=== PATIENT | female | born 1955 | race Caucasian/White ===

== ENCOUNTER 2019-09-14 12:29 | Emergency (ER) | payer SELFPAY ==
--- NOTE | 2019-09-14 12:42 | PC.NURSE ---
Patient left from registration. Was not seen by this nurse. Was informed by registration that her insurance does not cover the providers here.
== END 2019-09-14 12:46 | disposition left against medical advice (07) ==
LOC: EXPGLEN 12:34
PROVIDERS: Emergency Provider Nurse Practitioner Family; PCP Family Medicine
DX: Z53.21 Procedure and treatment not carried out due to patient leaving prior to being seen by health care provider (principal)
CPT/HCPCS: 99199

== ENCOUNTER 2020-06-11 16:24 | Emergency (ER) | payer BC, SELFPAY ==
[2020-06-11] VITALS (7 sets, daily range): BP systolic 122–150; BP diastolic 72–99; PULSE 77–109; RESP 18–26; TEMP 36.4; O2SAT 96–99
--- NOTE | 2020-06-11 17:10 | ED.GENADULT ---
HPI - General Adult General Chief complaint: Unspecified Stated complaint: high blood pressure Time Seen by Provider: 06/11/20 16:42 Source: patient Mode of arrival: ambulatory Limitations: no limitations History of Present Illness HPI narrative: This is a 65-year-old female that presents to the emergency department for hypertension. Reports she had not taken her blood pressure medications for a couple of days and her blood pressure has been elevated. Reports she has had a mild headache the last couple of days. Reports she thought she should get checked out. Denies fever, vision changes, vomiting, chest pain, shortness of breath, or lower extremity edema. Related Data Home Medications Medication Instructions Recorded Confirmed anastrozole 1 mg tablet 1 mg PO DAILY 04/21/20 dextroamphetamine-amphetamine 10 10 mg PO DAILY 04/21/20 mg tablet estradiol 1 g VAGINAL 2XW 04/21/20 levothyroxine 150 mcg tablet 150 mcg PO DAILY 04/21/20 losartan 100 mg tablet 100 mg PO DAILY 04/21/20 ondansetron HCl 8 mg tablet 8 mg PO Q8H PRN 04/21/20 spironolactone 100 mg tablet 50 mg PO .3-4XWEEK tablet 04/21/20 testosterone 200 mg implant pellet 100 mg SUBCUT ONCE ea 04/21/20 alprazolam 0.25 mg tablet 0.25 mg PO BID PRN tablet 05/25/20 Allergies Allergy/AdvReac Type Severity Reaction Status Date / Time iodine Allergy Unknown Unknown Verified 06/11/20 16:41 sulfur dioxide Allergy Unknown Unknown Verified 06/11/20 16:36 Sulfa (Sulfonamide Allergy Unknown Verified 06/11/20 16:36 Antibiotics) 1 IVP DYE 2 SULFA Allergy Unknown Unknown Uncoded 06/11/20 16:41 Review of Systems Review of Systems: Narrative: CONSTITUTIONAL: Denies fever EYES: Denies visual changes CARDIOVASCULAR: Denies chest pain, or edema. RESPIRATORY: Denies dyspnea. GASTROINTESTINAL: Denies vomiting NEUROLOGIC: Reports headache. Denies numbness, or weakness. All systems reviewed & are unremarkable except as noted in HPI and below PMFSH Past Medical History Medical History (Updated 06/11/20 @ 18:41 by Radha Castano PA-C) History of hypertension Migraines Thyroid disorder Surgical History Surgical History (Updated 04/21/20 @ 09:47 by Faby T. Martinez, [employer]) Delivery by section H/O: hysterectomy Family History Family History (Updated 04/21/20 @ 08:56 by Sylwia Spencer CMA) Father Heart attack Social History Social History (Updated 04/21/20 @ 08:57 by Sylwia Spencer CMA) Smoking status: Former smoker Smoking end date: 07/10/82 Alcohol intake: current Gender identity (if verbalized by the patient): Female Exam Narrative: Exam Narrative: GENERAL: Well-appearing, well-nourished, and in no acute distress. HEAD: Normocephalic, atraumatic. EYES: PERRLA and EOMI. ENT: Nares clear, no rhinorrhea or epistaxis. Mucous membranes moist. Oropharynx without tonsillar hypertrophy exudate or other lesions. Bilateral TMs pearly cruz non-bulging NECK: Supple. No adenopathy or masses. CHEST: Clear to auscultation. No respiratory distress. No wheezes rales or rhonchi HEART: Regular rate and rhythm. No murmur heard. Normal peripheral pulses. EXTREMITIES: Normal range of motion. No edema. SKIN: Warm, dry, no rash. NEURO: No focal deficits. Alert and oriented x3. Cranial nerves II through XII grossly intact PSYCH: Normal mood and affect Course Vital Signs Vital signs: Vital Signs Temperature 97.6 F 06/11/20 16:30 Pulse Rate 98 06/11/20 16:30 Respiratory Rate 20 06/11/20 16:30 Blood Pressure 150/99 H 06/11/20 16:30 Pulse Oximetry 99 06/11/20 16:30 Temperature 97.6 F 06/11/20 16:30 Pulse Rate 84 06/11/20 18:03 Respiratory Rate 24 H 06/11/20 18:03 Blood Pressure 122/72 06/11/20 18:01 Pulse Oximetry 98 06/11/20 18:03 Medical Decision Making MDM Narrative Medical decision making narrative: Patient presents the emergency department for hypertension. Blood pressure elevated 150/99 on arri
--- NOTE | 2020-06-11 17:22 | PC.NURSE ---
patient refusing ct scan stating she doesnt feel it is necessary
[2020-06-11 17:23] LABS: Basophils Absolute Auto 0.1 K/mm3 (0.0-0.1); Basophils Percent Auto 0.5 % (0.2-1.2); Eosinophils Absolute Auto 0.2 K/mm3 (0-0.3); Eosinophils Percent Auto 1.9 % (0-4.4); Hematocrit 43.4 % (37.0-47.0); Hemoglobin 14.5 g/dL (12.0-15.0); Immature Granulocyte Absolute 0.03 K/mm3 (0.00-0.031); Immature Granulocyte Percent A 0.3 % (0-0.5); Lymphocytes Percent Auto 30.6 % (18.3-44.2); Mean Corpuscular HGB Conc 33.4 g/dl (32-36); Mean Corpuscular Hemoglobin 27.9 pg (26-34); Mean Corpuscular Volume 83.5 fl (80-100); Mean Platelet Volume 8.9 fl (7.4-10.4); Monocytes Absolute Auto 0.8 K/mm3 (0.1-0.6); Monocytes Percent Auto 8.3 % (2.6-8.5); Neutrophils Absolute Auto 5.3 K/mm3 (1.3-6.7); Neutrophils Percent Auto 58.4 % (45.5-73.1); Platelet Count Result 350 k/mm3 (150-375); Red Cell Distribution Width 14.5 % (11.5-14.5); White Blood Count 9.1 K/mm3 (4.5-10.0)
[2020-06-11 17:36] LABS: Anion Gap 6 mmol/L (8-16); Blood Urea Nitrogen 13 mg/dL (7-17); Calcium 9.3 mg/dL (8.4-10.2); Carbon Dioxide 30 mmol/L (22-30); Chloride 101 mmol/L (98-107); Estimated CRCL calculation 65 ml/min; Estimated Glomerular Filt Rate > 60; Glucose 100 mg/dL (65-105); Sodium 137 mmol/L (137-145)
== END 2020-06-11 18:52 | disposition home or self-care (01) ==
PROVIDERS: Physician Assistant; Emergency Provider Family Medicine; PCP Internal Medicine
DX: I10 Essential (primary) hypertension (principal); E07.9 Disorder of thyroid, unspecified; Z87.891 Personal history of nicotine dependence
CPT/HCPCS: 36415; 80048; 85025; 96374; 99284; J0131

== ENCOUNTER 2020-09-14 16:41 | Outpatient (CLI) | payer BC, SELFPAY | END 2020-09-14 16:42 | disposition home or self-care (01) | LOC: ANHCOVIDVC 16:41 | PROVIDERS: PCP Internal Medicine | DX: Z23 Encounter for immunization (principal) | CPT/HCPCS: 0001A; 91300 ==

== ENCOUNTER 2020-10-05 16:40 | Outpatient (CLI) | payer BC, SELFPAY | END 2020-10-05 16:41 | disposition home or self-care (01) | LOC: ANHCOVIDVC 16:40 | PROVIDERS: PCP Internal Medicine | DX: Z23 Encounter for immunization (principal) | CPT/HCPCS: 0002A; 91300 ==

== ENCOUNTER → 2023-06-13 12:06 | Outpatient (CLI) | payer MEDICARE, SELFPAY ==
--- NOTE | ~2023-06-13 | XR_ITS ---
Clinical Indication: Chronic bronchitis PA and lateral views of the chest: Comparison: None Findings: The lungs are clear, without evidence of focal consolidation or pleural effusion. Cardiome diastinal silhouette is within normal limits. Bones and soft tissues are unremarkable. Impression: Normal chest. Reviewed, dictated and finalized at location . K SECRETARY Impression: Normal chest.
== END ==
PROVIDERS: PCP Nurse Practitioner Adult Health; Visit Provider Nurse Practitioner Adult Health
DX: J42 Unspecified chronic bronchitis (principal)
CPT/HCPCS: 71046

== ENCOUNTER 2023-10-02 08:12 | Outpatient (CLI) | payer MEDICARE, SELFPAY ==
--- NOTE | ~2023-10-02 | XR_ITS ---
EXAMINATION: XR UGIAC w barium swallow DATE: 10/02/2023 09:09 INDICATION: Chronic cough with drinking. TECHNIQUE: The patient drank thick barium, gas-producing crystals, and thin barium. A total of 1093 f luoroscopic images of the hypopharynx, esophagus, stomach, and proximal small bowel were obtained. Fl uoroscopy exposure time was 2.5 minutes. Total DAP was 12.757 Gycm^2 COMPARISON: None. FINDINGS: The pharynx is symmetric and without evidence of mass lesion or mucosal irregularity. No evident taylor ngeal penetration or aspiration. The esophagus is normal without mass or stricture. Esophageal motili ty is normal. There is no hiatal hernia. There was no gastroesophageal reflux with provocative maneuv ers. The stomach and proximal small bowel are normal. IMPRESSION: 1. Normal esophagram and upper GI study. Given the clinical concern for aspiration and if clinically indicated, could consider further evaluation with modified barium swallow study performed in conjunct ion with the department of speech pathology for more detailed assessment of swallowing function. Reviewed, dictated and finalized at location A. IMPRESSION: 1. Normal esophagram and upper GI study. Given the clinical concern for aspirat ion and if clinically indicated, could consider further evaluation with modifie d barium swallow study performed in conjunction with the department of speech p athology for more detailed assessment of swallowing function.
== END 2023-10-02 08:13 | disposition home or self-care (01) ==
PROVIDERS: PCP Nurse Practitioner Adult Health; Visit Provider Nurse Practitioner Family
DX: K21.9 Gastro-esophageal reflux disease without esophagitis (principal); R05.3 Chronic cough; R13.10 Dysphagia, unspecified
CPT/HCPCS: 74246

== ENCOUNTER 2023-11-10 08:13 | Outpatient (CLI) | payer MEDICARE, SELFPAY ==
--- NOTE | ~2023-11-10 | XR_ITS ---
Lumbosacral Spine: AP and lateral views Clinical History: Pain Findings: The normal lordotic curve is maintained. No fracture evident. 3 mm anterolisthesis of L4 ov er L5 noted. Vertebral disc spaces are well preserved. There is severe facet arthropathy from L3 thro ugh S1. The sacroiliac joints are normally outlined. Vascular stents are noted in the iliac vessel re gions. Impression: 3 mm anterolisthesis of L4 over L5. Extensive facet arthropathy, as above. Iliac vessels stents. Reviewed, dictated and finalized at location M. Impression: 3 mm anterolisthesis of L4 over L5. Extensive facet arthropathy, as above. Iliac vessels stents.
--- NOTE | ~2023-11-10 | XR_ITS ---
XR hip RT min 2V 11/10/2023 08:57 Indication: Right hip pain Procedure: 2 views each hip Comparison: No prior studies for comparison. Findings: Mild osteoarthritis of the hips which is symmetric. There are endovascular stents in the il iac arteries. Pelvic rings are intact. Sacral foramen are symmetric. Impression: 1: Mild osteoarthritis of the hips. Reviewed, dictated and finalized at location B. Impression: 1: Mild osteoarthritis of the hips.
== END 2023-11-10 08:14 ==
PROVIDERS: PCP Nurse Practitioner Adult Health; Visit Provider Registered Nurse
DX: M54.50 Low back pain, unspecified (principal); M16.11 Unilateral primary osteoarthritis, right hip
CPT/HCPCS: 72100; 73502

== ENCOUNTER 2023-12-20 08:33 | Outpatient (CLI) | payer MEDICARE, SELFPAY ==
--- NOTE | 2023-12-20 11:30 | NEURO_ITS ---
Impression: # Non-diabetic complains of numbness of lower extremities. # Normal Nerve Conduction Study. # Needle/EMG exam not requested. # Clinical correlation recommended. Nerve Conduction Studies Anti Sensory Summary Table Stim Site NR Peak (ms) P-T Amp (?V) Site1 Site2 Delta-P (ms) Dist (cm) Demetrius (m/s) Left Sup Fibular Anti Sensory (Ant Lat Mall) 14 cm 3.0 15.0 14 cm Ant Lat Mall 3.0 16.0 53 Right Sup Fibular Anti Sensory (Ant Lat Mall) 14 cm 3.1 10.8 14 cm Ant Lat Mall 3.1 16.0 52 Left Sural Anti Sensory (Lat Mall) Calf 3.2 5.5 Calf Lat Mall 3.2 16.0 50 Right Sural Anti Sensory (Lat Mall) Calf 3.6 4.5 Calf Lat Mall 3.6 16.0 44 Motor Summary Table Stim Site NR Onset (ms) O-P Amp (mV) Site1 Site2 Delta-0 (ms) Dist (cm) Demetrius (m/s) Left Peroneal Motor (Vastus Med) Ankle 3.4 1.7 Popit Ankle 8.1 39.0 48 Popit 11.5 1.0 Right Peroneal Motor (Vastus Med) Ankle 3.2 1.0 Popit Ankle 7.9 38.0 48 Popit 11.1 0.7 Left Tibial Motor (Abd Ramirez Brev) Ankle 3.9 1.5 Knee Ankle 7.5 39.0 52 Knee 11.4 2.3 Right Tibial Motor (Abd Ramirez Brev) Ankle 3.9 3.5 Knee Ankle 8.5 40.0 47 Knee 12.4 2.8 F Wave Studies NR F-Lat (ms) L-R F-Lat (ms) Left Peroneal (Mrkrs) (EDB) 47.39 1.26 Right Peroneal (Mrkrs) (EDB) 48.65 1.26 Left Tibial (Mrkrs) (Abd Hallucis) 48.41 0.50 Right Tibial (Mrkrs) (Abd Hallucis) 48.91 0.50 MTDD
== END 2023-12-20 08:34 | disposition home or self-care (01) ==
LOC: ANHNEURO 08:34
PROVIDERS: PCP Nurse Practitioner Adult Health; Visit Provider Family Medicine
DX: M54.31 Sciatica, right side (principal)
CPT/HCPCS: 95910

== ENCOUNTER 2024-12-12 08:32 | Outpatient (CLI) | payer MEDICARE, SELFPAY ==
--- OUTSIDE RECORDS SUMMARY | 2024-12-12 08:39 | XMS_ITS | CONTINUITY OF CARE DOCUMENT ---
Author Name phan, phan Address Unknown Organization [facility] Address [address] [address] [place] [address] Phone [phone] Care Team Providers Care Toolroom Helper Name Role Phone Stefan SUN, Alex Yu Unavailable [phone] BEN SUN, EVENS Garrison Unavailable DEBBY MOSELEY MD Unavailable PROBLEMS Condition Status Date Provider Notes Diabetes mellitus, oral medication active Vaughn Monroy RN Aortic atherosclerosis active Kamar Hawk MD Venous insufficiency active Kamar Ordaz HYPOTHYROIDISM active Kamar Hawk MD Screening active Kamar Hawk MD zero sco re HTN ESSENTIAL active Kamar Hawk MD Overweight active Kamar Hawk MD ANXIETY DISORDER MILD active Kamar Hawk MD SNORING completed - Kamar Hawk MD Chest pain, atypical completed - Kamar Hawk MD Tobacco use, quit active Kamar Hawk MD t oo remote to screen Abnormal electrocardiogram completed 03/31 - Kamar Hawk MD FAMILY HISTORY OF HEART DISEASE active Kamar Hawk MD dad Rosacea active Kamar Hawk MD Leg pain, bilateral active Hiral Renee eyer ENCOUNTERS Date Type Provider Location Encounter Diag nosis 6 - 7 In-person encounter Office Visit Alex Aviles MD [facility] Office 4 - 8 In-person encounter Office Visit Alex Aviles MD [facility] Office 7 - 6 In-person encounter Office Visit Alex Aviles MD [facility] Leg pain, bilateral 7 - 7 In-person encounter Office Visit Kamar Hawk MD [facility] ScreeningChest pain, atypicalTobacco use, quitAbnormal electrocardiogramFAMILY HISTORY OF HEART DISEASERosacea 2 - 2 In-person encounter Office Visit Kamar Hawk MD [facility] ScreeningOverweightSNORINGTobacco use, quitFAMILY HISTORY OF HEART DISEASE 6 - 6 In-person encounter Office Visit Kamar Hawk MD [facility] HYPOTHYROIDISMScreeningHTN ESSENTIALOverweightANXIETY DISORDER MILD VITAL SIGNS Date Observation Value Provider Body Mass Index (Ratio) 29.78 kg/m2 Ulises Arellano blood pressure, cuff size regular Damon mi Oswald blood pressure, diastolic 89 mm[Hg] [facility], systolic 133 mm[Hg] [facility] oxygen saturation, oximetry 98 % Nga Oswald respiratory rate E&M 14 /min Nga Oswald pulse rate 94 /min Nga Oswald weight E&M 179 [lb_av] Nga Oswald height E&M 65 [in_i] Nga Oswald Body Mass Index (Ratio) 29.38 kg/m2 Prudencio Gonzales blood pressure, cuff size regular Sh tishamassiel Zabrina blood pressure, diastolic 100 mm[Hg] Sh shyann Gerber blood pressure, systolic 148 mm[Hg] She wing Gerber oxygen saturation, oximetry 94 % Domi Gerber weight E&M 176.6 [lb_av] Domi Gerber respiratory rate E&M 84 /min Domi Gerber pulse rate 94 /min Domi Gerber height E&M 65 [in_i] Domi Gerber Body Mass Index (Ratio) 29.95 kg/m2 Keysha courtney Miko blood pressure, diastolic 74 mm[Hg] Sa ra Luevano blood pressure, systolic 138 mm[Hg] Reynaldo a Luevano blood pressure, cuff size regular Sa ra Luevano oxygen saturation, oximetry 97 % Lucinda Luevano pulse rate 97 /min Lucinda Luevano weight E&M 180 [lb_av] Lucinda Luevano height E&M 65 [in_i] Lucinda Luevano Body Mass Index (Ratio) 29.62 kg/m2 Tammie Hawk MD blood pressure, diastolic 83 mm[Hg] Micheline nkLogbradford blood pressure, systolic 132 mm[Hg] Estefany Siuogbradford blood pressure, diastolic 83 mm[Hg] Rh onremigio Angel blood pressure, systolic 132 mm[Hg] Rho ndleatha Angel oxygen saturation, oximetry 98 % Ting Angel pulse rate 75 /min Ting Angel blood pressure, cuff size regular Rh wil Angel blood pressure, resting Yes Yolanda Frazier respiratory rate E&M 16 /min Ting Angel weight E&M 178 [lb_av] Ting Angel height E&M 65 [in_i] Ting Angel blood pressure, diastolic 84 mm[Hg] Samuel Montero blood pressure, systolic 118 mm[Hg] Reyes Montero pulse rate 99 /min Tootie Montero oxygen saturation, oximetry 98 % [facility] respiratory rate E&M 15 /min [facility] Body Mass Index (Ratio) 28.62 kg/m2 Nehemias Montero weight E&M 172 [lb_av] [facility] height E&M 65 [in_i] Tootie Montero blood pressure, diastolic 81 mm[Hg] Yolanda Cooper MA blood pressure, systolic 123 mm[Hg] Marina Cooper MA pulse rate 77 /min Ivanna Cooper MA oxygen saturation, oximetry 97 % Ivanna Cooper MA respiratory rate E&M 18 /min Ivanna Cooper MA weight E&M 204 [lb_av] Ivanna Cooper MA ALLERGIES Allergy Name Onset Date Reaction Criticality Status IVP DYE flushing and milds sob Low Criticali ty active QSYMIA High Criticality active LISINOPRIL Edwin induced cough High Criticality a ctive RESULTS Date Observation Value Provider Reference Range Interpretation Location hemoglobin A1C, blood, as % of total hemoglobin 5.4 % OF TOTAL HGB [facility] <5.7 Normal C-reactive protein, by highly sensitive test 1.0 mg/L [facility] Normal basophils as percent of blood leukocytes 0.5 % [facility] Normal eosinophils as percent of blood leukocytes 2.3 % [facility] Normal monocyte count, blood 8.3 % [facility] Normal lymphocyte count, blood 29.5 % [facility] Normal neutrophils as percent of blood leukocytes 59.4 % [facility] Normal basophils, absolute, manual 34 cells/mcL [facility] 0-200 Normal eosinophils, absolute, manual 154 cells/mcL [facility] 15-500 Normal monocytes, absolute, manual 556 cells/mcL [facility] 200-950 Normal lymphocytes, absolute 1977 CELLS/UL [facility] 850-3900 Normal Absolute Neutrophil count 3980 cells/mcL [facility] 7700-8923 Normal mean platelet volume 9.5 fL [facility] 7.5-12.5 Normal platelet count 264 THOUSAND/UL [facility] 140-400 Normal red blood cell distribution width 12.7 % [facility] 11.0-15.0 Normal mean corpuscular hemoglobin concentration, RBC 33.1 G/DL [facility] 32.0-36.0 Normal mean corpuscular hemoglobin, RBC 29.9 pg [facility] 27.0-33.0 Normal mean corpuscular volume, RBC 90.2 fL [facility] 80.0-100.0 Normal hematocrit, blood 46.8 % [facility] 35.0-45.0 High hemoglobin electrophoresis, blood 15.5 [facility] 11.7-15.5 Normal erythrocyte (RBC) count 5.19 MILLION/UL [facility] 3.80-5.10 High leukocyte (white blood cells) count, blood 6.7 THOUSAND/UL [facility] 3.8-10.8 Normal calcium, serum 9.3 mg/dL [facility] 8.6-10.4 Normal carbon dioxide, venous blood 28 mmol/L [facility] 20-32 Normal chloride, serum 103 mmol/L [facility] 98-110 Normal potassium, serum 4.5 mmol/L [facility] 3.5-5.3 Normal sodium, serum 138 mmol/L [facility] 135-146 Normal urea nitrogen/creatini ne ratio, serum SEE NOTE: (calc) [facility] 6-22 creatinine, serum 0.75 mg/dL [facility] 0.50-1.05 Normal urea nitrogen, blood 13 mg/dL [facility] 7-25 Normal blood glucose, random 93 mg/dL [facility] 65-99 Normal NT-pro BNP 44 [facility] <125 Normal microalbumin/crea tinine ratio, urine 3 MG/G CREAT [facility] <30 Normal microalbumin/tota l urine volume 6 mg/L [facility] Units converted. See lab report for original value. Normal creatinine, random, urine 186 mg/dL [facility] 20-275 Normal cholesterol, non-HDL, total 83 MG/DL (CALC) [facility] <130 Normal cholesterol/HDL ratio, serum, percent 3.2 (calc) [facility] <5.0 Normal LDL cholesterol, serum 64 MG/DL (CALC) [facility] Normal triglyceride, serum, fasting 107 mg/dL [facility] <150 Normal HDL cholesterol, serum 37 mg/dL [facility] > OR = 50 Low cholesterol, serum 120 mg/dL [facility] <200 Normal prothrombin time (patient) 10.5 s [facility] 9.0-11.5 Normal international normalized ratio (INR) 1.0 [facility] Normal basophils as percent of blood leukocytes 0.6 % [facility] Normal eosinophils as percent of blood leukocytes 1.9 % [facility] Normal monocyte count, blood 8.6 % [facility] Normal lymphocyte count, blood 30.5 % [facility] Normal neutrophils as percent of blood leukocytes 58.4 % [facility] Normal basophils, absolute, manual 41 cells/mcL [facility] 0-200 Normal eosinophils, absolute, manual 131 cells/mcL [facility] 15-500 Normal monocytes, absolute, manual 593 cells/mcL [facility] 200-950 Normal lymphocytes, absolute 2105 CELLS/UL [facility] 850-3900 Normal Absolute Neutrophil count 4030 cells/mcL [facility] 2371-8070 Normal mean platelet volume 9.9 fL [facility] 7.5-12.5 Normal platelet count 320 THOUSAND/UL [facility] 140-400 Normal red blood cell distribution width 14.3 % [facility] 11.0-15.0 Normal mean corpuscular hemoglobin concentration, RBC 32.8 G/DL [facility] 32.0-36.0 Normal mean corpuscular hemoglobin, RBC 27.9 pg [facility] 27.0-33.0 Normal mean corpuscular volume, RBC 85.1 fL [facility] 80.0-100.0 Normal hematocrit, blood 44.5 % [facility] 35.0-45.0 Normal hemoglobin electrophoresis, blood 14.6 [facility] 11.7-15.5 Normal erythrocyte (RBC) count 5.23 MILLION/UL [facility] 3.80-5.10 High leukocyte (white blood cells) count, blood 6.9 THOUSAND/UL [facility] 3.8-10.8 Normal calcium, serum 9.2 mg/dL [facility] 8.6-10.4 Normal carbon dioxide, venous blood 28 mmol/L [facility] 20-32 Normal chloride, serum 105 mmol/L [facility] 98-110 Normal potassium, serum 4.2 mmol/L [facility] 3.5-5.3 Normal sodium, serum 141 mmol/L [facility] 135-146 Normal urea nitrogen/creatini ne ratio, serum NOT APPLICABLE (calc) [facility] 6-22 Estimated Glomerular Filtration Rate (calc) 106 mL/min/{1.73_m 2} [facility] > OR = 60 Normal creatinine, serum 0.69 mg/dL [facility] 0.50-0.99 Normal urea nitrogen, blood 9 mg/dL [facility] 7-25 Normal blood glucose, random 97 mg/dL [facility] 65-99 Normal cholesterol, non-HDL, total 46 MG/DL (CALC) [facility] <130 Normal cholesterol/HDL ratio, serum, percent 2.5 (calc) [facility] <5.0 Normal LDL cholesterol, serum 34 MG/DL (CALC) [facility] Normal triglyceride, serum, fasting 41 mg/dL [facility] <150 Normal HDL cholesterol, serum 31 mg/dL [facility] > OR = 50 Low cholesterol, serum 77 mg/dL [facility] <200 Normal pro brain natriuretic peptide 15 pg/mL [facility] 0-287 HISTORY OF MEDICATION USE Medication Status Instructions Dates Provider Indications Com ments Plavix 75 mg tablet completed Take 1 tablet by mouth once a day - 6 Nga Oswald diazepam 2 mg tablet completed Take 1 tablet by mouth as directed Take 1 tablet 15 minutes prior to the procedure. 5 - 6 Nga Oswald hydrocodone-acetam inophen 5-325 mg tablet active Take 1 tablet by mouth as directed Take 1 tablet 15 minutes prior to procedure. 5 Alex Aviles MD Plavix 75 mg tablet completed Take 1 tablet by mouth once a day 6 - 6 Yolanda Hanson prednisone 50 mg tablet active Take 1 tablet by mouth 1 tablet evening before procedure with dinner/ 1 tablet at bedtime/ 1 tablet the morning of the procedure 7 Coni Mireles atorvastatin 20 mg tablet completed TAKE 1 TABLET BY MOUTH DAILY 7 - 2 Kamar Hawk MD Aspirin Childrens 81 mg tablet,chewable completed TAKE 1 TABLET BY MOUTH EVERY DAY 6 - 1 Kamar Hawk MD Crestor 10 mg tablet completed TAKE 1 TABLET BY MOUTH EVERY DAY 6 - 7 Kamar Hawk MD metformin (Glucophage XR) 500 mg tablet extended release 24 hr completed - 6 Nga Oswald Anjana 0.05 mg/24 hr patch semiweekly active Kamar Hawk MD levothyroxine 150 mcg tablet active Kamar Hawk MD spironolactone 100 mg tablet completed - 6 Ngatasha Oswald losartan 100 mg tablet active TAKE 1 TABLET BY MOUTH EVERY DAY Nga Oswald doxycycline monohydrate 50 mg capsule active as needed TAKE 1 CAPSULE BY MOUTH ONCE DAILY Kamar Hawk MD Qsymia 7.5-46 mg capsule, ER multiphase 24 hr completed 1 tablet by mouth once a day 6 - 7 Kamar Hawk MD Qsymia 3.75-23 mg capsule, ER multiphase 24 hr completed 1 tablet once a day 2 - 7 Kamar Hawk MD Adderall 10 mg tablet completed Take 1 tablet by mouth once a day - 7 Kamar Hawk MD Synthroid 112 mcg tablet completed 1 tablet by mouth once a day - 7 Kamar Hawk MD LISINOPRIL 20 MG ORAL TABLET completed ONE TAB. DAILY instead of cozaar to save money 6 - 4 Robyn Rose RN SOCIAL HISTORY Date Observation Value Provider smoking status Former smoker Prateek girard smoking status Former smoker Domi Mcclure cachorro social history E&M Marital Statu s: L nasir with family/friends E thnicity: C hildren: 2 children Smoking History: P atient is a former smoker. Moris Mares social history reviewed E&M revi ewed - no changes required Moris Mares smoking status Former smoker Lucinda Luevano social history E&M Marital Statu s: L nasir with family/friends E thnicity: C hildren: 2 children Smoking History: P atient is a former smoker. Kamar Hawk MD social history reviewed E&M revi ewed - no changes required Kamar Hawk MD smoking status Former smoker Ting Jeanne quit smoking, stage quit Kamar lynn MD social history E&M Marital Statu s: L nasir with family/friends E thnicity: C sashaen: 2 children Smoking History: P atient currently smokes every day. P atient has been counseled to quit. Kamar Hawk MD social history reviewed E&M revi ewed - no changes required Kamar Hawk MD physical exercise, f requency, days per week yes [facility] alcohol use, average drinks per day social basis only [facility] caffeine use, averag e drinks per day yes [facility] smoking/tobacco cess ation, patient education and counseling yes [facility] smoking status Current every day smoker [facility] number of grandchildren Kamar Hawk MD [facility] number of children 2 children Kamar murillo MD social history E&M Marital Statu s: L nasir with family/friends E thnicity: C sashaen: 2 children Kamar Hawk MD social history reviewed E&M reviewed Kamar Hawk MD physical exercise, f requency, days per week yes [facility] caffeine use, averag e drinks per day yes [facility] alcohol use, average drinks per day social basis only [facility] smoking status Quit [facility] MENTAL STATUS Date Observation Value Provider assessment of judgme nt and insight E&M Alert and oriented to time, place and person. Mood and affect are normal. Kamar Hawk MD INSURANCE PROVIDERS Payer name Policy type / Coverage type [place] [employer] green party ID [employer] MEDICARE ADVANTAGE PLAN (PPO) Medicare [id number] ADVANCE DIRECTIVES Name Date DISCUSSED - NO DECISION MADE TREATMENT PLAN Date Name Performer [id number],C,T he patient has no signs/symptoms of infection and i told her If she develops symptoms of infection or swelling or difficulty walking she should seek medical advice there. 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 Viet Jamison MD [id number],C, H er updated medication list for this problem includes: Levothyroxine 150 Mcg Tablet (Levothyroxine) Hiral Crouch [id number],S, Weight loss advised Hiral Crouch [id number],C, P rior BP: 138/74 (07/26/2021) Labs Reviewed: C reat: 0.69 (07/29/2021) C hol: 77 (07/29/2021) HDL: 31 (07/29/2021) LDL: 34 MG/DL (CALC) (07/29/2021) T (07/29/2021) Her updated medication list for this problem includes: Aspirin Childrens 81 Mg Tablet,chewable (Aspirin) ..... Take 1 tablet by mouth every day Spironolactone 100 Mg Tablet (Spironolactone) Losartan 100 Mg Tablet (Losartan) ..... Take 1 tablet by mouth once daily Hiral Crouch [id number],C,T he pt underwent stenting of the iliac veins bilaterally, and then underwent Venaseal of the right GSV. She reports improvement of the right leg, less stiffness and swelling. She is schedule for additional Venaseal procedures. She may stop Plavix at this time (procedure Jul 2021). All questions answered. Hiral Crouch [id number],C, H er updated medication list for this problem includes: Levothyroxine 150 Mcg Tablet (Levothyroxine) Hiral Crouch [id number],S,S he continues to complain of increasing LE discomfort, cramping, and pain, usually in the evening. She had venous duplex showed no evidence of DVT, significant venous insufficiency of the great saphenous vein and small saphenous vein bilaterally, 07/2021. She continues to take Spirinolactone, she has not been able to use compression socks. Discussed undergoing Venogram with IVUS to evalute further due to her worsening LE cramping and pain. Moris Mares [id number],S,S he continues to complain of increasing LE discomfort, cramping, and pain, usually in the evening. She had venous duplex showed no evidence of DVT, significant venous insufficiency of the great saphenous vein and small saphenous vein bilaterally, 07/2021. She continues to take Spirinolactone, she has not been able to use compression socks. Discussed undergoing Venogram with IVUS to evalute further due to her worsening LE cramping and pain. Moris Sanjuanastan [id number],S, Weight loss advised Moris Galanweston [id number],S, Moris Galan i [id number],S, B P today: 138/74 P rior BP: 132/83 (04/15/2021) Her updated medication list for this problem includes: Aspirin Childrens 81 Mg Tablet,chewable (Aspirin) ..... Take 1 tablet by mouth every day Spironolactone 100 Mg Tablet (Spironolactone) Losartan 100 Mg Tablet (Losartan) ..... Take 1 tablet by mouth once daily Moris Suzan [id number],S, Moris Galan weston [id number],S, Kamar zhang MD [id number],SKamar MD [id number],BKamar MD [id number],S,D iscussion of benefits for remote patient monitoring took place. Patient gives consent for remote monitoring of physiologic parameters including, but not limited to, weight, blood pressure, pulse oximetry, respiratory flow rate. Kamar Hawk MD [id number],SKamar MD [id number],SKamar MD [id number],S,n eg bnp n ml chol and xray and duplex and neg echo n eg stres 7 yeasrs ago p t says pft were checked too Kamar Hawk MD Cardiology:Pt is act ayse in [place]. States is trying to lose weight. Prateek Arellano Cardiology: T he following medications were removed from the medication list: Metformin (glucophage Xr) 500 Mg Tablet Extended Release 24 Hr (Metformin (glucophage xr)) Her updated medication list for this problem includes: Losartan 100 Mg Tablet (Losartan) ..... Take 1 tablet by mouth every day Prateek Arellano Cardiology: H er updated medication list for this problem includes: Levothyroxine 150 Mcg Tablet (Levothyroxine) Prateek Arellano Cardiology: BP is sl ightly elevated today, but lower than last visit, will check on RPM and adjust meds as needed. B P today: 133/89 P rior BP: 148/100 (09/21/2023) Labs Reviewed: C reat: 0.75 (10/16/2023) C hol: 120 (10/16/2023) HDL: 37 (10/16/2023) LDL: 64 MG/DL (CALC) (10/16/2023) T (10/16/2023) The following medications were removed from the medication list: Spironolactone 100 Mg Tablet (Spironolactone) Her updated medication list for this problem includes: Losartan 100 Mg Tablet (Losartan) ..... Take 1 tablet by mouth every day Prateek Arellano Cardiology:attribute d to knee. not connected to vascular issue Prateek Arellano Cardiology Alex Aviles MD Cardiology:Will obta in chest xray, check Echo BP today: 148/100 P rior BP: 138/74 (07/26/2021) Labs Reviewed: C reat: 0.69 (07/29/2021) C hol: 77 (07/29/2021) HDL: 31 (07/29/2021) LDL: 34 MG/DL (CALC) (07/29/2021) T (07/29/2021) Her updated medication list for this problem includes: Spironolactone 100 Mg Tablet (Spironolactone) Losartan 100 Mg Tablet (Losartan) ..... Take 1 tablet by mouth once daily Alex Aviles MD Telehealth:The patie nt has no signs/symptoms of infection and i told her If she develops symptoms of infection or swelling or difficulty walking she should seek medical advice there. o daniella it would be unusual to develop infection 1 month post venaseal deployment. Viet Jamison MD Telehealth: H er updated medication list for this problem includes: Levothyroxine 150 Mcg Tablet (Levothyroxine) Hiral Crouch Telehealth: Weight loss advised Hiral Crouch Telehealth: P rior BP: 138/74 (07/26/2021) Labs Reviewed: C reat: 0.69 (07/29/2021) C hol: 77 (07/29/2021) HDL: 31 (07/29/2021) LDL: 34 MG/DL (CALC) (07/29/2021) T (07/29/2021) H er updated medication list for this problem includes: Aspirin Childrens 81 Mg Tablet,chewable (Aspirin) ..... Take 1 tablet by mouth every day Spironolactone 100 Mg Tablet (Spironolactone) Losartan 100 Mg Tablet (Losartan) ..... Take 1 tablet by mouth once daily Hiral Crouch Telehealth:The pt un derwent stenting of the iliac veins bilaterally, and then underwent Venaseal of the right GSV. She reports improvement of the right leg, less stiffness and swelling. She is schedule for additional Venaseal procedures. She may stop Plavix at this time (procedure Jul 2021). All questions answered. Hiral Crouch Cardiology: H er updated medication list for this problem includes: Levothyroxine 150 Mcg Tablet (Levothyroxine) Hiral Crouch Cardiology:She kiran nues to complain of increasing LE discomfort, cramping, and pain, usually in the evening. She had venous duplex showed no evidence of DVT, significant venous insufficiency of the great saphenous vein and small saphenous vein bilaterally, 07/2021. She continues to take Spirinolactone, she has not been able to use compression socks. Discussed undergoing Venogram with IVUS to evalute further due to her worsening LE cramping and pain. Hiral Pinedadonnie Cardiology:She kiran nues to complain of increasing LE discomfort, cramping, and pain, usually in the evening. She had venous duplex showed no evidence of DVT, significant venous insufficiency of the great saphenous vein and small saphenous vein bilaterally, 07/2021. She continues to take Spirinolactone, she has not been able to use compression socks. Discussed undergoing Venogram with IVUS to evalute further due to her worsening LE cramping and pain. Hiral Pinedadonnie Cardiology: Weight loss advised Hiral Miko Cardiology Moris Mares Cardiology: B P today: 138/74 P rior BP: 132/83 (04/15/2021) Her updated medication list for this problem includes: Aspirin Childrens 81 Mg Tablet,chewable (Aspirin) ..... Take 1 tablet by mouth every day Spironolactone 100 Mg Tablet (Spironolactone) Losartan 100 Mg Tablet (Losartan) ..... Take 1 tablet by mouth once daily Hiral Miko Cardiology Moris Mares Cardiology Kamar Hawk MD Cardiology Kamar Hawk MD Cardiology Kamar Hawk MD Cardiology:Discussio n of benefits for remote patient monitoring took place. Patient gives consent for remote monitoring of physiologic parameters including, but not limited to, weight, blood pressure, pulse oximetry, respiratory flow rate. Kamar Hawk MD Cardiology Kamar Hawk MD Cardiology Kamar Hawk MD Cardiology:neg bnp n ml chol and xray and duplex and neg echo n eg stres 7 yeasrs ago p t says pft were checked too Kamar Hawk MD Cardiology:WILL CONSIDEDR QYMSIA A Kamar Hawk MD Cardiology:SINCE AT LEAST 08, EC HO 09 FINE Kamar Hawk MD Cardiology:neg echo 09 H er updated medication list for this problem includes: Cozaar 100 Mg Tabs (Losartan potassium) ..... One tab. daily BP today: 118/84 P rior BP: 123/81 (03/04/2008) Kamar Hawk MD Cardiology:nml chol and xray and duplex and neg echo n eg stres 7 yeasrs ago p t says pft were checked too Kamar Hawk MD New Pt: H er updated medication list for this problem includes: Lisinopril 20 Mg Tabs (Lisinopril) ..... One tab. daily instead of cozaar to save money BP today: 123/81 Kamar Hawk MD New Pt: B P today: 123/81 Prior BP: / () Kamar Hawk MD New Pt: H er updated medication list for this problem includes: Synthroid 112 Mcg Tabs (Levothyroxine sodium) ..... One tab. daily Kamar Hawk MD New Pt Kamar Hawk MD New Pt Kamar Hawk MD Date Name RPM (remote patient monitoring) CRP, high sensitivit y CBC (INCLUDES DIFF/P LT) Microalb/Creatinine Urine, Random HEMOGLOBIN A1c BASIC METABOLIC PANE L W/EGFR LIPID PANEL PROBNP, N TERMINAL BASIC METABOLIC PANE L W/EGFR X-Ray, Chest - Routi ne DLCO - 79423 FRC - 52375 FVC - 94790 Complete Echo Venous Doppler Unila teral LLE Venous Doppler Bilat eral LE - Reflux PROTHROMBIN TIME WIT H INR LIPID PANEL CBC (INCLUDES DIFF/P LT) BASIC METABOLIC PANE L W/EGFR Venogram w/ IVUS - S [facility] RPM (remote patient monitoring) Venous Doppler Bilat eral LE - Reflux CT, Coronary Calcium Score STR - Routine PROBNP, N TERMINAL HISTORY OF PROCEDURES Procedure Date Procedure Name Provider Procedure Notes S tatus Complex e/m visit add on Alex Aviles MD completed Spirometry Alex Aviles MD completed FVC / MVV - 06362 Alex Aviles MD com pleted SVC - 74532 Alex Aviles MD completed DLCO - [id number] Alex Aviles MD complete d CT- Coronary CA score Kamar Hawk MD completed EKG Kamar Hawk MD complete d EKG Kamar Hawk MD complete d SNOMED-CT: [id number] Current Medications Documented Kamar Hawk MD completed EKG Kamar Hawk MD complete d
--- OUTSIDE RECORDS SUMMARY | 2024-12-12 08:39 | XMS_ITS | Clinical Summary ---
Author Organization [facility] Address [address] [place] [address] Care Team Providers Care Paster Operator Name Role Phone Hugo Horowitz MD Primary Care Provider [phone] Allergies Active Allergy Reactions Criticality Noted Date Comments Iodine Hives,Rash Reaction: Hives, Skin Rash, Lisinopril Cough High 04/22/2008 Phentermine-Topiramate Other (See comments) High 01/2021 Sulfa (Sulfonamide Antibiotics) Sulfanilamide Hives,Rash Reaction: Hives, Skin Rash, Medications Breyna 160-4.5 mcg/actuation inhaler Inhale 2 puffs 2 (two) times a day 09/22/2023 Active ergocalciferol (VITAMIN D) 50,000 unit capsule Take 1 capsule (50,000 Units total) by mouth once a week 07/27/2023 Active levothyroxine (SYNTHROID) 125 mcg tablet Take 1 tablet (125 mcg total) by mouth daily Active losartan (COZAAR) 100 mg tablet Take 1 tablet (100 mg total) by mouth daily Active estradioL (VAGIFEM) 10 mcg tabletIndicatio ns:Stress incontinence,Ge nitourinary syndrome of menopause Insert one (1) tablet into the vagina two (2) nights a week 18 tablet 3 09/27/2023 Active Active Problems Problem Noted Date Diagnosed Date Presbyopia 08/31/2010 Immunizations Immunization Administration Dates Next Due Influenza, Trivalent, IM (MDV) 04/09/2011 Tdap 06/24/2011 Surgical History Surgery Date Site/Laterality Comments SECTION 07/10/1989 - 07/09/1990 section HYSTERECTOMY AGE 61 BREAST BIOPSY NEG LEFT Medical History Medical History Date Comments Disorder of thyroid Thyroid dise ase Hx Other Medical Headache, migra ine Hypertension Hypertension Hx Other Medical 2003 Abdominoplasty Family History Medical History Relation Name Comments Thyroid cancer Brother Cancer -thyro id; Hypothyroidism Daughter Hypothyroidis m; Heart disease Father Heart disease; Thyroid cancer Maternal Half-Brother Heart disease Other 1 Family history of Heart disease; Other Other 2 No family histo ry of Diabetes mellitus; Rheum arthritis Sister Rheumatoid a rthritis; Breast cancer Neg Hx Endometrial cancer Neg Hx Ovarian cancer Neg Hx Relation Name Status Comments Brother Daughter Father Maternal Half-Brother Alive Other 1 Other 2 Sister Social History Tobacco Use Types Packs/Day Years Used Date Smoking Tobacco: Never Alcohol Use Standard Drinks/Week Comments Yes 0 (1 standard drink = 0.6 oz pur e alcohol) Comments No Sex and Gender Information Value Date Recorded Sex Assigned at Not on file Legal Sex Female 11:27 PM MICROSOFT EXCHANGE ARCHITECT Gender Identity Female 04/10/2021 6:08 PM CDT Sexual Orientation Straight 04/10/2021 6: 08 PM CDT Obstetrics History Para Term AB IAB SAB Ectopic Multiple Livin g Live Births 2 2 2 Date Outcome GA Total Labor Labor/2nd/3rd Weight Sex Type Anes PTL Elsa A1 A5 Name Clin Term Term Plan of Treatment Health Maintenance Due Date Last Done Comments Colon Cancer Screening-Colonoscopy 1956 Depression Screening 1956 Fall Risk Assessment 1956 Hepatitis C Screening 1956 Osteoporosis Screening-Bone Density Scan 1956 Hepatitis B Screening 1974 Well Visit 65+ 2021 Pneumococcal vaccine 65+ (2 of 2 - PCV) 04/08/2022 04/08/2021 Covid-19 Vaccine (2023-2 5 season) 2024 04/29/2021, 10/05/2020, 09/14/2020 Influenza Vaccine (Season Ended) 2025 04/08/2021, 04/04/2019, 04/02/2017, Additional history exists Breast Cancer Screening-Mammogram 06/05/2025 06/05/2024, 05/01/2023, 07/08/2019, Additional history exists DTaP/Tdap/Td Vaccine (3 - Td or Tdap) 04/02/2027 04/02/2017, 06/24/2011 Zoster Vaccine Completed 06/17/2020, 07/2019, 07/19/2014 Procedures Procedure Name Priority Date/Time Associated Diagnosis Comments SCREENING MAMMOGRAM BILATERAL W THERON Schedule Routine, Read Routine (OP Routine) 06/05/2024 1:34 PM MICROSOFT EXCHANGE ARCHITECT Screening mammogram for breast cancer from Last 3 Months or Most Recently Relevant to Health Maintenance Results * Screening Mammogram Bilateral W Theron (06/05/2024 1:34 PM MICROSOFT EXCHANGE ARCHITECT) Anatomical Region Laterality Modality Breast Bilateral Mammography Narrative 06/10/2024 4:23 PM MICROSOFT EXCHANGE ARCHITECT Mammogram Technique: Bilateral Digital Breast Tomosynthesis, Bilateral C-view 2D Screening mammogram. Views obtained: bilateral craniocaudal and bilateral mediolateral oblique. Computer Aided Detection was performed. Mammogram Findings: The present examination has been compared to prior imaging studies performed at [facility] on 05/01/2023, at [place], [place] on 07/08/2019, and [facility]. The breasts are almost entirely fatty. There is no suspicious abnormality in either breast. Impression: There is no mammographic evidence of malignancy. Annual screening mammography is recommended. OVERALL FINAL ASSESSMENT: BI-RADS CATEGORY 1: Negative. Procedure Note Ana Laura Trivedi MD - 06/10/2024 Mammogram Technique: Bilateral Digital Breast Tomosynthesis, Bilateral C-view 2D Screening mammogram. Views obtained: bilateral craniocaudal and bilateral mediolateral oblique. Computer Aided Detection was performed. Mammogram Findings: The present examination has been compared to prior imaging studies performed at [facility] on 05/01/2023, at [place], [place] on 07/08/2019, and [facility] 06[facility]17/2020. The breasts are almost entirely fatty. There is no suspicious abnormality in either breast. Impression: There is no mammographic evidence of malignancy. Annual screening mammography is recommended. OVERALL FINAL ASSESSMENT: BI-RADS CATEGORY 1: Negative. us Self Screening Mammogram IMG MAMMO PROCEDURES Fi nal Result from Last 3 Months or Most Recently Relevant to Health Maintenance Insurance [facility]ICARE ADVANTAGE [facility] [employer] ADV[employer] Care Teams Paster Operator Relationship Specialty Start Date End Date Hugo Horowitz MD PCP - General 06/14/18
--- OUTSIDE RECORDS SUMMARY | 2024-12-12 08:39 | XMS_ITS | Clinical Summary ---
Author Organization [facility] Address [address] [place] [address] Phone Care Team Providers Care Visual Manager Name Role Phone Hugo Horowitz MD Primary Care Provider Allergies Active Allergy Reactions Criticality Noted Date Comments Sulfa (Sulfonamide Antibiotics) Hives High 11/2017 Medications dextroamphetami ne-amphetamine (ADDERALL) 20 mg tablet TK 1 T PO TID 0 8 Active losartan (COZAAR) 100 mg tablet Take 100 mg by mouth daily. Active levothyroxine 125 mcg tablet Take 125 mcg by mouth daily early childhood assistant. Active conjugated estrogens (PREMARIN) 0.625 mg/gram vaginal creamIndication s:Vaginal atrophy Insert 0.5 Grams vaginally twice weekly. 30 Gram 1 8 Active Active Problems No known active problems Social History Tobacco Use Types Packs/Day Years Used Date Smoking Tobacco: Never Assessed Comments No Sex and Gender Information Value Date Recorded Sex Assigned at Not on file Legal Sex Female 4:19 AM ENVIRONMENTAL FIELD OFFICE MANAGER Gender Identity Not on file Sexual Orientation Not on file Last Filed Vital Signs Vital Sign Reading Time Taken Comments Blood Pressure 143/88 06/13/2018 11:26 AM ENVIRONMENTAL FIELD OFFICE MANAGER Pulse - - Temperature - - Respiratory Rate - - Oxygen Saturation - - Inhaled Oxygen Concentration - - Weight 84.2 kg (185 lb 9.6 oz) 06/13/2018 11:26 AM ENVIRONMENTAL FIELD OFFICE MANAGER Height 165.1 cm (5' 5) 06/13/2018 11:26 AM ENVIRONMENTAL FIELD OFFICE MANAGER Body Mass Index 30.89 06/13/2018 11:26 AM ENVIRONMENTAL FIELD OFFICE MANAGER Plan of Treatment Health Maintenance Due Date Last Done Comments COLORECTAL SCREENING 2001 Colorectal Cancer Screening 2001 FIT-DNA Q 3 years 2001 FIT/FOBT Q 1 year 2001 Flex Sig/CT Colonography Q 5 years 2001 PNEUMOCOCCAL VACCINE 50+ YEA RS (1 of 1 - PCV) 2006 ZOSTER VACCINE (1 of 2) 2006 BREAST CANCER SCREENING 08/02/2022 08/02/19, 08/02/2021, 06/17/2020, Additional history exists INFLUENZA VACCINE (#1) 2024 04/02/2017 OSTEOPOROSIS SCREENING 08/02/2026 08/02/2021 DTAP/TDAP/TD VACCINES (2 - T d or Tdap) 04/02/2027 04/02/2017 RSV VACCINE (60+ or ) (1 - 1-dose 75+ series) 2031 Care Teams Visual Manager Relationship Specialty Start Date End Date Hugo Horowitz MD PCP - General Family Practice 09/17/14
--- OUTSIDE RECORDS SUMMARY | 2024-12-12 08:39 | XMS_ITS | Clinical Summary ---
Author Organization [facility] Care Team Providers Care C2 Tactical Analysis Technician Name Role Phone Unavailable Primary Care Provider Unavailabl e Social History Tobacco Use Types Packs/Day Years Used Date Smoking Tobacco: Never Assessed Comments Unknown Sex and Gender Information Value Date Recorded Sex Assigned at Not on file Legal Sex Female 10:41 PM CDT Gender Identity Not on file Sexual Orientation Not on file Plan of Treatment Health Maintenance Due Date Last Done Comments Hepatitis C Virus (HCV) Screening 1955 TdaP Immunization 1956 Colonoscopy 2001 Colorectal Cancer Screening 2001 Cologuard 2006 Immunochemical Fecal Occult Blood 2006 Pneumococcal Immunization (5 0+ years) (1 of 1 - PCV) 2006 Zoster Immunization (1 of 2) 2006 SARS-COV-2 Immunization (1 - 2023- season) 2024 Influenza Immunization (Seas on Ended) 2025 Respiratory Syncytial Virus (RSV) Immunization (Adult) (1 - 1-dose 75+ series) 2031 Hepatitis B Immunization Aged Out No longer eligible based on patient's age to complete this topic Human Papillomavirus (HPV) Immunization Aged Out No longer eligible b ased on patient's age to complete this topic Meningococcal Immunization (ACWY) Aged Out No longer eligible based on patient's age to complete this topic Rotavirus Immunization Aged Out No lo nger eligible based on patient's age to complete this topic
--- OUTSIDE RECORDS SUMMARY | 2024-12-12 08:39 | XMS_ITS | Continuity of Care Document ---
Author Organization [facility] Address [address] [place] [address] Phone Care Team Providers Care Tappet Adjuster Name Role Phone Jeremy Osborne MD Unavailable Unavailable Advance Directives Directive Yes / No Effective Date File Name No Information Encounters Encounter Description Practice Location Reason(s) For Visit Diagnoses Date Provider Providers Copied on Encounter [facility], [address], [place], [place], [id number], [place] tel:[phone] [facility] No Information Dylon Luna. [address], [place], [id number] , [place]. tel: [phone] Family History Family Member Type Diagnosis Age At Onset No Information Payers Payer name Insurance type Covered alliance party ID Authoriza tion(s) No Information Social History Type Description Quantity Date Captured Comments Alcohol Use Details Unknown Caffeine Use Details Unknown Tobacco Use Status No Information Smoking Status No Information Sex Female Chief Complaint And Reason For Visit No Information Reason For Referral Reason For Referral No Information History Of Present Illness Encounter Date Complaint History Of Prese nt Illness No Information Functional Status Date Functional Assessmen t No Information Instructions Date Instruction Additional Infor mation No Information Assessments Type Assessment Date No Information Patient Care Teams Name Effective Dates (start - stop) Status Members No Information
--- OUTSIDE RECORDS SUMMARY | 2024-12-12 08:39 | XMS_ITS | Encounter Summary ---
Author Organization [facility] Address [address] [place] [address] Care Team Providers Care Armature Winder Helper Repair Name Role Phone Hugo Horowitz MD Primary Care Provider [phone] Reason for Visit * Diagnostic Imaging (Routine) - Closed Specialty Diagnoses / Procedures Referred By Contac t Referred To Contact Procedures Breast Imaging Screening Outside Reference Transcribed Order, Provider Referral ID Status Reason Start Date Expiration Date Visits Re quested Visits Authorized [id number] Closed 05/12/2023 06/10/2024 1 1 Encounter Details Date Type Department Care Team (Late st Contact Info) Description 06/17/2020 Hospital Encounter [facility] [address] [place] [id number] Social History Tobacco Use Types Packs/Day Years Used Date Smoking Tobacco: Never Alcohol Use Standard Drinks/Week Comments Yes 0 (1 standard drink = 0.6 oz pur e alcohol) Comments No Sex and Gender Information Value Date Recorded Sex Assigned at Not on file Legal Sex Female 11:27 PM BALL MACHINE OPERATOR Gender Identity Female 04/10/2021 6:08 PM CDT Sexual Orientation Straight 04/10/2021 6: 08 PM CDT documented as of this encounter Plan of Treatment Not on file documented as of this encounter Procedures Procedure Name Priority Date/Time Associated Diagnosis Comments BREAST IMAGING MG SCREENING OUTSIDE REFERENCE Routine 06/17/2020 12:00 AM BALL MACHINE OPERATOR documented in this encounter Results * Breast Imaging Screening Outside Reference (06/17/2020 12:00 AM BALL MACHINE OPERATOR) Impressions [facility]_MAMMO[facility] - 05/12/2023 3:18 PM CDT These images are for Reference purposes only and have not been reviewed by [facility]. There will be no report generated by a [facility]iologist. Narrative [facility]_MAMMO[facility] - 05/12/2023 3:18 PM CDT EXAMINATION: Images For Reference Purposes Only us Provider Transcribed Order IMG MAMMO PROCEDURES Final Result [facility] documented in this encounter Visit Diagnoses Not on filedocumented in this encounter Care Teams Armature Winder Helper Repair Relationship Specialty Start Date End Date Hugo Horowitz MD PCP - General 06/14/18 documented as of this encounter
--- OUTSIDE RECORDS SUMMARY | 2024-12-12 08:39 | XMS_ITS | Referral Summary ---
Author Organization [facility] Address [address] [place] [address] Care Team Providers Care Residential Aide Name Role Phone Hugo Horowitz MD Primary Care Provider [phone] Allergies Active Allergy Reactions Criticality Noted Date [...] Influenza, Trivalent, IM (MDV) 04/09/2011 Tdap 06/24/2011 Social History Tobacco Use Types Packs/Day Years Used Date Smoking Tobacco: Never Alcohol Use Standard Drinks/Week Comments Yes 0 (1 standard drink = 0.6 oz pur e alcohol) Comments No Sex and Gender Information Value Date Recorded Sex Assigned at Not on file Legal Sex Female 11:27 PM VAMP THROATER Gender Identity Female 04/10/2021 6:08 PM CDT Sexual Orientation Straight 04/10/2021 6: 08 PM CDT Plan of Treatment Not on file Procedures Procedure Name Priority Date/Time Associated Diagnosis Comments SCREENING MAMMOGRAM BILATERAL W THERON Schedule Routine, Read Routine (OP Routine) 06/05/2024 1:34 PM VAMP THROATER Screening mammogram for breast cancer from Last 3 Months or Most Recently Relevant to Health Maintenance Results * Screening Mammogram Bilateral W Theron (06/05/2024 1:34 PM VAMP THROATER) Anatomical Region Laterality Modality Breast Bilateral Mammography Narrative 06/10/2024 4:23 PM VAMP THROATER Mammogram Technique: Bilateral Digital Breast Tomosynthesis, Bilateral C-view 2D Screening mammogram. Views obtained: bilateral craniocaudal and bilateral mediolateral oblique. Computer Aided Detection was performed. Mammogram Findings: The present examination has been compared to prior imaging studies performed at [facility] on 05/01/2023, at [place], [place] on 07/08/2019, and at [facility] on 06/17/2020. The breasts are almost entirely [...] to prior imaging studies performed at [facility] on 05/01/2023, at [place], [place] on 07/08/2019, and at [facility] [address] on 06/17/2020. The breasts are almost entirely fatty. There is no suspicious abnormality in either breast. Impression: There is no mammographic evidence of malignancy. Annual screening mammography is recommended. OVERALL FINAL ASSESSMENT: BI-RADS CATEGORY 1: Negative. us Self Screening Mammogram IMG MAMMO PROCEDURES Fi nal Result from Last 3 Months or Most Recently Relevant to Health Maintenance Insurance [facility] MEDICARE ADVANTAGE [facility] MEDICARE ADVANTAGE Care Teams Residential Aide Relationship Specialty Start Date End Date Hugo Horowitz MD PCP - General 06/14/18
--- OUTSIDE RECORDS SUMMARY | 2024-12-12 08:39 | XMS_ITS | Clinical Summary ---
Author Organization [facility] [employer] Address [address] [address] Care Team Providers Care Dance Director Name Role Phone Hugo Horowitz MD Primary Care Provider [phone] Source Comments [facility],non-owned Affiliates and Associated Physician Practices is amultiple site organization consisting of ambulatory clinics and hospital sitesin [place], [place], [place] and [place]. This disclosure is being madepursuant to the Care Everywhere program and may not contain all information available regarding this patient. Last updated 18.[facility] [employer] Allergies Active Allergy Reactions Criticality Noted Date Comments Iodine Urticaria,Rash Medium 09/11/2024 Reaction: Hives, Skin Rash, Lisinopril Cough High 04/22/2008 Phentermine-Topiramate Other High 04/15/2021 Sulfa Drugs 04/02/2017 Sulfanilamide Urticaria,Rash Medium 09/11/2024 Reaction: Hives, Skin Rash, Medications * Be aware that medications may not be up to date on this document. Alwaysverify current medications with the patient. levothyroxine (Synthroid) 150 MCG tablet TAKE 1 TABLET BY MOUTH ONCE DAILY IN THE MORNING ON AN EMPTY STOMACH AND SHOULD NOT EAT FOOD OR OTHER MEDICATION FOR ONE HOUR AFTER TAKING Active losartan (Cozaar) 100 MG tablet losartan 100 mg tablet Active Paxlovid, 300/100, TAKE 3 TABLETS TOGETHER (TWO 150 MG NIRMATRELVIR TABLETS AND ONE 100 MG RITONAVIR TABLET) BY MOUTH TWICE DAILY FOR 5 DAYS. 4 Active Active Problems No known active problems Encounters Date Type Department Care Team Description 09/11/2024 10:00 AM FAMILY LITERACY COORDINATOR Office Visit [facility] [address] [place] [address] Victor Manuel Torres MD Stenosis of iliac vein (Primary Dx) from Last 3 Months Immunizations Immunization Administration Dates Next Due INFLUENZA VACCINE, QUADR. (F LUZONE; FLULAVAL; FLUARIX; AFLURIA QUADRIVALENT; 6MO+), 0.5 ML (IIV4) 04/02/2017 TDAP (7yrs+) 04/02/2017 Social History Tobacco Use Types Packs/Day Years Used Date Smoking Tobacco: Never Assessed Comments Unknown Sex and Gender Information Value Date Recorded Sex Assigned at Not on file Legal Sex Female 5:05 AM FAMILY LITERACY COORDINATOR Gender Identity Female 04/02/2017 2:39 PM CDT Sexual Orientation Not on file Last Filed Vital Signs Vital Sign Reading Time Taken Comments Blood Pressure 145/91 09/11/2024 10:03 AM FAMILY LITERACY COORDINATOR Pulse 71 09/11/2024 10:03 AM FAMILY LITERACY COORDINATOR Temperature 36.7 C (98.1 F) 09/11/2024 10:03 AM FAMILY LITERACY COORDINATOR Respiratory Rate 18 09/11/2024 10:0 3 AM FAMILY LITERACY COORDINATOR Oxygen Saturation 97% 09/11/2024 10: 03 AM FAMILY LITERACY COORDINATOR Inhaled Oxygen Concentration - - Weight 81.1 kg (178 lb 12.8 oz) 025 10:03 AM FAMILY LITERACY COORDINATOR Height 172.7 cm (5' 8) 09/11/2024 10:0 3 AM FAMILY LITERACY COORDINATOR Body Mass Index 27.19 09/11/2024 10:03 AM FAMILY LITERACY COORDINATOR Plan of Treatment Upcoming Encounters Date Type Department Care Team (Late st Contact Info) Description 01/29/2025 1:15 PM CDT Office Visit [facility] - Ophthalmology [address] [place] [phone] Bridger Luna MD [address] [place] [address] [place] [phone] Health Maintenance Due Date Last Done Comments BONE DENSITY TESTING 1955 COLOGUARD (AGES 45-75) - COLON CA SCREENING 1956 COLON MONITORING 1956 COLONOSCOPY - COLON CA SCREENING 1956 CT COLONOGRAPHY - COLON CA SCREENING 1956 Colorectal Cancer Screening 1956 FIT - COLON CA SCREENING 1956 FLEX SIG - COLON CA SCREENING 1956 LIPID TESTING 1956 HEPATITIS C SCREENING 03/11/1974 PNEUMOCOCCAL VACCINE 50+ (1 of 1 - PCV) 2006 ZOSTER VACCINE (1 of 2) 2006 COVID-19 VACCINE (1 - season) 2024 DEPRESSION SCREENING 07/10/2024 MEDICARE AWV CALENDAR YEAR 2024 SCREENING FOR DIABETES 09/11/2024 INFLUENZA VACCINE (Season Ended) 2025 04/02/2017, 04/09/2011 MAMMOGRAM 06/05/2026 06/05/2024, 05/11, 05/01/2023, Additional history exists DTAP/TDAP/TD VACCINES (2 - Td or Tdap) 04/02/2027 04/02/2017 Respiratory Syncytial Virus (RSV) Vaccine Pt: or over 60 yrs (1 - 1-dose 75+ series) 2031 HEPATITIS B VACCINE Aged Out No longe r eligible based on patient's age to complete this topic HIB VACCINE Aged Out No longer eligi ble based on patient's age to complete this topic HPV VACCINE Aged Out No longer eligi ble based on patient's age to complete this topic MENINGOCOCCAL (Group B) VACCINE SHARED DECISION-MAKING Aged Out No longer eligible based on patient's age to complete this topic MENINGOCOCCAL GROUPS A/C/Y/W VACCINE Aged Out No longer eligible based on patient's age to complete this topic Insurance [facility] MANAGED MEDICARE ADV Care Teams Dance Director Relationship Specialty Start Date End Date Hugo Horowitz MD [address] [place] [address] PCP - General Family Medicine 04/02/17
[2024-12-31 12:30] VITALS: BMI 28.9
--- NOTE | 2024-12-31 12:30 | WPDHOMESLEEP ---
Sleep Study - Home Unattended Date of Study: 12/12/24 Ordering Provider: Alejandro Chapman APRN Interpreting Provider: Karol Finch, DO Home Sleep Study Type: Watch PAT Height: 1.65 m Weight: 78.925 kg Body Mass Index: 28.9 Neck Circumference (inches): 16.5 [place]: 8 Reason for Sleep Study Trouble staying asleep Sleep History The patient is a 69-year-old female who had a sleep study ordered by the pulmonary group for evaluation of sleep apnea. The patient admits to having difficulty maintaining sleep. She denies snoring loudly. She denies interruptions in breathing while asleep. She denies choking or gasping at night. She does have trouble breathing on her back. She denies morning headaches. She does have a dry or sore mouth/throat in the morning. She denies nocturnal heartburn. She does have difficulty staying asleep but is able to fall asleep easily. She does have difficulty returning to sleep if she wakes up throughout the night. She denies any hypnotic or sedative use. She denies feeling anxious about sleep. She does feel tired or sleepy during the day. She does feel tired or sleepy in the morning. She does have the urge to fall asleep during the day. She denies feeling drowsy while driving. She denies sleep paralysis, cataplexy, and hypnagogic/hypnopompic hallucinations. She denies clenching or grinding her teeth. She does kick or jerk her legs excessively. She does have a restless feeling in her legs, but it does not cause an urge to move her legs. The restless feeling does not worsen with rest but it does improve with activity. The restless feeling is present predominantly in the evening or at nighttime, and it does not cause a disturbance in her sleep. She goes to bed at 10 p.m. every night. It takes her one hour to fall asleep. She gets 6 hours of sleep per night. Her sleep is a little more restorative on days off. She denies taking any planned naps. She denies dream enactment behavior. She denies sleepwalking. She denies consuming any caffeinated beverages throughout the day. She consumes 2 alcoholic beverages 1 to 2 nights per week. She denies tobacco use. She exercises 3-4 nights per week. [facility] Past Medical History Medical History Anxiety History of hypertension Thyroid disorder Migraines Surgical History Surgical History History of hysteroscopy (06/11/15) Hscope, D&C - PMB - disordered proliferative pattern, tubal metaplasia History of hysteroscopy (05/26/16) D&C postmenopausal bleeding/ slightly thickened endometrial cavity S/P breast biopsy, left benign Delivery by section (07/10/89) Primary C/S - distress H/O: hysterectomy (06/16/16) RATLH- bilateral salpingo-oophorectomy/ enlarged uterus/ postmenopausal bleeding- fibriods noted- path normal Family History Family History Father Heart attack Social History Social History Smoking packs per day: 0.5 Smoking cigarettes per day: 10.0 Years smoked: 10 Smoking pack-years: 5.00 Smoking status: Former smoker Tobacco type: cigarettes Smoking end date: 07/10/82 Alcohol intake: current Alcohol use details: 3-4 times a week Substance use: never Substance use type: does not use Living arrangements: other Additional living arrangements comments: Occupation/Education: retired Gender identity (if verbalized by the patient): Female Sexual Orientation (if Verbalized by the Patient): Straight or Heterosexual Medications Home Medications ?Medication ?Instructions ?Recorded ?Confirmed ?Type levothyroxine 150 mcg tablet 150 mcg PO DAILY 04/21/20 11/28/24 History alprazolam 0.25 mg tablet (Xanax) 0.25 mg PO BID PRN 05/25/20 11/28/24 History losartan 100 mg tablet See Rx Instructions .Route 04/13/23 11/28/24 Rx .COMPLEX #90 tabs cholecalciferol (vitamin D3) 1,250 1,250 mcg PO WEEKLY 09/28/23 11/28/24 History mcg (50,000 unit) capsule budesonide-formoterol HFA 160 2 inh inhalation BID #10.2 grams 11/28/24 11/28/24 Rx mcg-4.5 mcg/actuation aerosol inhaler (Breyna) Sleep Procedure The sleep study was completed using [employer]inglepharbT a technically adequate device with seven channels: peripheral arterial tone, actigraphy, body position, snore, respiratory movement, pulse oximetry, sleep staging, and heart rate. Prior to using the device, the patient received verbal and written instructions for its application and was provided with the help desk phone number for additional telephonic instruction with 24-hour availability of qualified personnel to answer questions. The study was scored using CMS guidelines. Sleep Architecture The total recording time is 8 hrs, 40 min. The total sleep time is 6 hrs, 56 min. Sleep latency is 16 minutes. REM latency is 235 minutes. The patient had 20 episodes of waking. Sleep architecture shows 13.1% deep sleep, 68.7% light sleep, and (as % Total Sleep Time) showed NREM (Light 68.7%; Deep 13.1%), and a 18.2% stage REM. The patient spent 43.5% of total sleep time in the supine position. Sleep efficiency was 80.00. Respiratory Analysis The overall AHI (pAHI 4%:) is 7.8. The overall AHI (pAHI 3%:) is 18.6. The central AHI is 1.5. The AHI was 18.7 in NREM and 18.3 in REM sleep. The AHI was 22.2 in Supine and 16.0 in Non-supine sleep. Percent of Greg Timmons respirations is 0.0. Oximetry Data The oxygen desaturation index (BERTRAM 4%:) is 7.5. The mean saturation is 93%, and the lowest saturation is 87%. Time spent with saturation < 88% is 0.4 minutes. Snoring Profile Snoring average intensity is 40 dB. The patient snored above 45 decibels for 10.6 minutes, 2.5% of sleep time. Cardiac Profile The average pulse rate is 67 beats per minutes. The lowest pulse rate is 52 bpm. The highest pulse rate reported is 97 bpm. Suspected Afib total duration is 0:00:40, (h:m:sec). The longest Afibevent duration is 0:00:40. A suspected arrhythmia flagged in the sleep report does not necessarily imply an arrhythmia condition is present, but rather suggests that further investigation should be considered. A-Fib events < 60 seconds may be artifact. Premature beats occur 0.4 per minute. Assessment and Plan Assessment and Plan (1) KAUSHAL (obstructive sleep apnea): Code(s): G47.33 - Obstructive sleep apnea (adult) (pediatric) Status: Acute Assessment and Plan: The patient had an overall AHI of 7.8 with desaturation down to 87%. This is consistent with mild sleep apnea. Due to the patient's hypertension, she qualifies for treatment.I recommend that the patient have a CPAP Titration with the use of a hypnotic to ensure we obtain enough sleep data and find an optimal pressure setting. A mandibular advancement device is also an acceptable treatment option. Data The data obtained during this sleep study is adequate for interpretation. Certification This sleep study has been reviewed by a board certified sleep medicine physician.
== END 2024-12-13 09:43 | disposition home or self-care (01) ==
PROVIDERS: PCP Family Medicine; Visit Provider Nurse Practitioner Family
DX: G47.33 Obstructive sleep apnea (adult) (pediatric) (principal)
CPT/HCPCS: 95800

== ENCOUNTER 2025-04-25 12:20 | Outpatient (CLI) | payer MEDICARE, SELFPAY ==
--- NOTE | ~2025-04-25 | US_ITS ---
US thyroid INDICATION: Thyroid nodule. Hypothyroidism. TECHNIQUE: Real-time sonographic images of the thyroid gland were obtained. COMPARISON: No prior studies for comparison. FINDINGS: The right thyroid lobe measures 3.9 x 1.3 x 1.3 cm. The left thyroid lobe measures 4.4 x 0.9 x 0.9 cm. There is normal echotexture and echogenicity throughout the thyroid gland. In the right lobe there is a solid hypoechoic mass measuring 1.6 x 1.1 x 0.8 cm. The lesion is wider than tall, smoothly marginated, circumscribed margins and no echogenic foci or calcifications. No discrete mass identified in the left lobe. Normal vascular flow is present. IMPRESSION: 1. Right thyroid mass measuring 1.6 cm, TI rads category 4. Recommend fine- needle aspiration biopsy. Reviewed, dictated and finalized at location O. IMPRESSION: 1. Right thyroid mass measuring 1.6 cm, TI rads category 4. Recommend fine-nee dle aspiration biopsy.
== END 2025-04-25 12:21 | disposition home or self-care (01) ==
LOC: MICIMG 12:21
PROVIDERS: PCP Family Medicine; Visit Provider Otolaryngology
DX: E04.1 Nontoxic single thyroid nodule (principal)
CPT/HCPCS: 76536